=== PATIENT | female | born 1985 | race Asian ===

== ENCOUNTER 2016-10-29 16:50 | Inpatient (IN) | payer SELFPAY ==
[~2016-10-29] VITALS: Ht 168 cm; Wt 78.9 kg
[2016-10-29] MEDS ORDERED: PROMETHAZINE 25 MG/ML VIAL IVP PRN (17:10)
[2016-10-29] MEDS ORDERED: METHYLERGONOVINE 0.2 MG/ML AMP IM PRN (17:10)
[2016-10-29] MEDS ORDERED: OXYTOCIN 10 UNITS/ML VIAL IM PRN (17:10)
[2016-10-29] MEDS ORDERED: NALBUPHINE 10 MG/ML AMP IVP PRN (17:10)
[2016-10-29] MEDS ORDERED: LACTATED RINGERS 1,000 ML IV SCH (17:10)
[2016-10-29] MEDS ORDERED: OXYTOCIN 20 UNITS/LR PREMIX 1,000 ML IV SCH (17:10)
[2016-10-29 17:42] LABS: BASOPHILS % (AUTO) 0.4 % (0.0-2.0); EOSINOPHILS # (AUTO) 0.1 K/uL (0-0.4); EOSINOPHILS % (AUTO) 1.3 % (0.0-4.0); HEMOGLOBIN 11.5 g/dL (12.0-16.0); LYMPHOCYTES # (AUTO) 1.5 K/uL (2.5-16.5); LYMPHOCYTES % (AUTO) 14.5 % (20.5-51.1); MEAN CORPUSCULAR HEMOGLOBIN 28 pg (27-31); MEAN CORPUSCULAR HGB CONC 33 g/dL (33-37); MEAN CORPUSCULAR VOLUME 85 fL (80-94); MONOCYTES # (AUTO) 0.6 K/uL (0.8-1.0); MONOCYTES % (AUTO) 5.7 % (1.7-9.3); NEUTROPHILS # (AUTO) 8.5 K/uL (1.8-7.7); NEUTROPHILS % (AUTO) 78.1 % (42.2-75.2); PLATELET COUNT (AUTO) 297 K/uL (140-450); RED CELL DISTRIBUTION WIDTH 12.4 % (11.6-13.7); WHITE BLOOD COUNT (AUTO) 10.7 K/uL (4.8-10.8)
[2016-10-29] MEDS ORDERED: BUPIVACAINE 0.125%/NS PREMIX 250 ML ONE (17:42)
[2016-10-29 17:52] LABS: BILIRUBIN,URINE NEGATIVE (NEGATIVE); BLOOD, URINE 3+ (NEGATIVE); LEUKOCYTE ESTERASE ,URINE NEGATIVE (NEGATIVE); NITRITE, URINE NEGATIVE (NEGATIVE); PH,URINE 5.5 (5.0-9.0); PROTEIN,URINE NEGATIVE (NEGATIVE); UGLUCOSE NEGATIVE (NEGATIVE); UROBILINOGEN,URINE 0.2 EU/dL (0.2 - 1)
[2016-10-29 18:03] LABS: APPEARANCE,URINE HAZY (CLEAR); COLOR,URINE YELLOW (YELLOW)
[2016-10-29 18:04] LABS: BACTERIA,URINE 1-9 (FEW) /HPF (None Seen); RBC,URINE 80-100 /HPF (0-5); SQUAMOUS EPITHELIAL CELL,UR 4-10 (MOD) /LPF (0-3 (FEW)); WBC,URINE 0-5 (RARE) /HPF (0-5)
[2016-10-29] MEDS ORDERED: AMPICILLIN 2,000 MG in NACL 0.9% 100 ML IV SCH (18:45)
[2016-10-29] MEDS ORDERED: OXYTOCIN 20 UNITS/LR PREMIX 1,000 ML IV ONE (19:47)
[2016-10-29] MEDS ORDERED: AMPICILLIN 2,000 MG VIAL ONE (19:47)
[2016-10-29] MEDS: AMPICILLIN 1,000 MG in NACL 0.9% 50 ML IV SCH (23:50)
[2016-10-29] MEDS ORDERED: AMPICILLIN 1,000 MG VIAL ONE (23:51)
[2016-10-30] MEDS ORDERED: OXYTOCIN 10 UNITS/ML VIAL ONE (00:45)
[2016-10-30] MEDS ORDERED: AMPICILLIN 1,000 MG VIAL ONE (03:58)
[2016-10-30] MEDS: AMPICILLIN 1,000 MG in NACL 0.9% 50 ML IV SCH (03:59)
[2016-10-30] MEDS ORDERED: CITRIC ACID/SODIUM CITRATE 30 ML UDC PO SCH (06:00)
[2016-10-30] MEDS ORDERED: ePHEDrine 50 MG/ML VIAL IV ONE (06:04)
[2016-10-30] MEDS ORDERED: PROPOFOL 200 MG/20 ML VIAL IV ONE (06:04)
[2016-10-30] MEDS ORDERED: LIDOCAINE 2% 100 MG/5 ML SYR IVP ONE (06:04)
[2016-10-30] MEDS ORDERED: MORPHINE PRES FREE 10 MG/10 ML AMP IV ONE (06:11)
[2016-10-30] MEDS ORDERED: CITRIC ACID/SODIUM CITRATE 30 ML UDC ONE (06:11)
[2016-10-30] MEDS ORDERED: SODIUM BICARBONATE 8.4% PFS 50 MEQ/50 ML SYR IVP ONE (06:11)
[2016-10-30] MEDS ORDERED: LIDOCAINE/EPI MPF 2%1:200000 10 ML VIAL INJ ONE (06:11)
[2016-10-30] MEDS ORDERED: TRIAMCINOLONE 40 MG/ML 5ML VIAL ONE ×2 (06:30→06:39)
[2016-10-30] MEDS ORDERED: SIMETHICONE 80 MG TAB.CHEW PO PRN (06:55)
[2016-10-30] MEDS ORDERED: TRIMETHOBENZAMIDE 200 MG/2 ML SYR IM PRN (06:55)
[2016-10-30] MEDS ORDERED: MEASLES, MUMPS, AND RUBELLA 1 VIAL SQVAC PRN (06:55)
[2016-10-30] MEDS ORDERED: METHYLERGONOVINE 0.2 MG/ML AMP IM PRN (06:55)
[2016-10-30] MEDS ORDERED: oxyCODONE/APAP 5/325 MG 1 TAB TAB PO PRN (06:55)
[2016-10-30] MEDS ORDERED: TEMAZEPAM 15 MG CAP PO PRN (06:55)
[2016-10-30] MEDS ORDERED: NALOXONE 0.4 MG/ML VIAL IVP PRN ×3 (07:05)
[2016-10-30] MEDS ORDERED: KETOROLAC 60 MG/2 ML VIAL IM PRN (07:05)
[2016-10-30] MEDS ORDERED: NALBUPHINE 10 MG/ML AMP IVP PRN (07:05)
[2016-10-30] MEDS ORDERED: ONDANSETRON 4 MG/2 ML VIAL IVP PRN ×2 (07:05)
[2016-10-30] MEDS ORDERED: diphenhydrAMINE 50 MG/ML VIAL IVP PRN (07:05)
[2016-10-30] MEDS ORDERED: OXYTOCIN 20 UNITS/LR PREMIX 1,000 ML IV ONE (07:11)
[2016-10-30] MEDS ORDERED: ONDANSETRON 4 MG/2 ML VIAL ONE (07:46)
--- NOTE | 2016-10-30 08:28 | NUR ---
PATIENT HAS BEEN SCREENED AND CATEGORIZED LOW NUTRITION RISK. PATIENT WILL BE SEEN WITHIN 7 DAYS OF ADMISSION. 11/05/[address]
[2016-10-30] MEDS: OXYTOCIN 20 UNITS/LR PREMIX 1,000 ML IV SCH ×2 (15:56→23:11)
[2016-10-30] MEDS: DOCUSATE SOD/SENNA 50/8.6 MG 1 TAB PO SCH (21:00)
[2016-10-31 06:12] LABS: BASOPHILS % (AUTO) 0.1 % (0.0-2.0); EOSINOPHILS # (AUTO) 0.2 K/uL (0-0.4); EOSINOPHILS % (AUTO) 1.2 % (0.0-4.0); HEMATOCRIT 30.8 % (36-48); HEMOGLOBIN 9.9 g/dL (12.0-16.0); LYMPHOCYTES # (AUTO) 1.3 K/uL (2.5-16.5); LYMPHOCYTES % (AUTO) 6.5 % (20.5-51.1); MEAN CORPUSCULAR HEMOGLOBIN 28 pg (27-31); MEAN CORPUSCULAR HGB CONC 32 g/dL (33-37); MEAN CORPUSCULAR VOLUME 86 fL (80-94); MONOCYTES % (AUTO) 5.1 % (1.7-9.3); NEUTROPHILS % (AUTO) 87.1 % (42.2-75.2); PLATELET COUNT (AUTO) 232 K/uL (140-450); RED BLOOD CELL COUNT(AUTO) 3.57 MIL/uL (4.20-5.40); RED CELL DISTRIBUTION WIDTH 12.7 % (11.6-13.7)
[2016-10-31 07:08] LABS: WHITE BLOOD COUNT (AUTO) 19.5 K/uL (4.8-10.8)
[2016-10-31] MEDS: IBUPROFEN 800 MG TAB PO PRN (16:19)
[2016-10-31] MEDS: DOCUSATE SOD/SENNA 50/8.6 MG 1 TAB PO SCH (21:50)
[2016-11-01] MEDS: HYDROcodone/APAP 5/325 MG 1 TAB TAB PO PRN (06:46)
[2016-11-01] MEDS: IBUPROFEN 800 MG TAB PO PRN (15:01)
[2016-11-01] MEDS: DOCUSATE SOD/SENNA 50/8.6 MG 1 TAB PO SCH (20:36)
[2016-11-02] MEDS: HYDROcodone/APAP 5/325 MG 1 TAB TAB PO PRN (12:19)
== END 2016-11-02 15:15 | disposition home or self-care (01) | DRG 766 ==
LOC: MLD 16:50 → MFCC 10-30 08:10
PROVIDERS: ADMIT Obstetrics & Gynecology; ATTEND Obstetrics & Gynecology
PROC: 10D00Z1 Extraction of Products of Conception, Low, Open Approach (ICD-10-PCS; principal; 2016-10-30 06:00)
PROC: 3E0234Z Introduction of Serum, Toxoid and Vaccine into Muscle, Percutaneous Approach (ICD-10-PCS; 2016-10-31)
DX: O62.1 Secondary uterine inertia (principal); O32.4XX0 Maternal care for high head at term, not applicable or unspecified; O33.9 Maternal care for disproportion, unspecified; O69.89X0 Labor and delivery complicated by other cord complications, not applicable or unspecified; Z37.0 Single live birth; Z3A.39 39 weeks gestation of pregnancy; Z23 Encounter for immunization
CPT/HCPCS: 36415; 51702; 81001; 85025; 86592; 86886; 86900; 86901; 90715; J0290; J2001; J2270; J2405; J2590; J2704; J3301; J3490; J7120